=== PATIENT | female | born 1985 | race African-American/Black ===

== ENCOUNTER 2016-10-31 19:04 | Emergency (ER) | payer OTHER ==
--- NOTE | ~2016-10-31 | CR286 ---
[facility] A Service of [facility] RADIOLOGY TEXT RESULTS PATIENT: QUINTIN EMANUEL LOCATION: CFTX : 89 UNIT #: [id number] AGE: [address]: Nannette Carter APRN SEX: F ORDER DR: [id number] [facility] [address] [place], [place] [address] [id number] E MR#: [id number] Acc #: [id number] NAME: QUINTIN EMANUEL : 1985 SEX: F STUDY DATE/TIME: 10/31/2016 19:32 UNIT: [facility] ROOM: STUDY DESCRIPTION: CR Wrist W Navicular Min 3 Rt Attending Physician: Nannette Carter A.P.R.N. Ordering Physician: Nannette Carter A.P.R.N. Primary Care Physician: Larissa Reynoso M.D. MEDICAL IMAGING REPORT This report is preliminary unless electronic signature is present EXAM Right wrist four views HISTORY Fell today. Wrist pain. FINDINGS Three views of the right wrist demonstrates a subtle deformity over the dorsal aspect of the wrist could represent a small triquetral avulsion fracture. Correlate with target physical exam. The navicular appears intact. No other fractures or deformity seen. IMPRESSION Subtle irregularity over the dorsum of the wrist is seen only on the lateral view could represent a small triquetral avulsion injury. Correlate with targeted physical exam. Dictated by... Ish Hyatt M.D. THIS IS AN ELECTRONICALLY VERIFIED REPORT Ish Hyatt M.D. at 11/01/2016 2:48 PM RIAN/adriane TD: 11/01/2016 02:19 JOB #: [id number] MEDICAL IMAGING REPORT Page 1 of 1 COPY
--- NOTE | ~2016-10-31 | CR93 ---
[facility] A Service of [facility] RADIOLOGY TEXT RESULTS PATIENT: QUINTIN EMANUEL LOCATION: CFTX : 89 UNIT #: [id number] AGE: [address]: Nannette Carter APRN SEX: F ORDER DR: [id number] [facility] [address] [place], [place] [address] [id number] E MR#: [id number] Acc #: [id number] NAME: QUINTIN EMANUEL : 1985 SEX: F STUDY DATE/TIME: 10/31/2016 19:29 UNIT: [facility] ROOM: STUDY DESCRIPTION: CR Elbow Min 3 Views Lt Attending Physician: Nannette Carter A.P.R.N. Ordering Physician: Nannette Carter A.P.R.N. Primary Care Physician: Larissa Reynoso M.D. MEDICAL IMAGING REPORT This report is preliminary unless electronic signature is present EXAM Left elbow, 3 views HISTORY Fell today. Elbow pain. FINDINGS Three views of the left elbow demonstrates subtle displacement of the anterior fat pad could represent a small joint effusion. No discernible fracture. The radial head appears intact. Lucency seen across the coronoid process, but this does not have the typical appearance of a fracture. IMPRESSION Questionable small elbow effusion, but no discernible fracture. If clinical symptoms persist, follow-up imaging in 7-10 days may be of benefit. Dictated by... Ish Hyatt M.D. THIS IS AN ELECTRONICALLY VERIFIED REPORT Ish Hyatt M.D. at 11/01/2016 2:48 PM RIAN/jacob TD: 11/01/2016 02:18 JOB #: [id number] MEDICAL IMAGING REPORT Page 1 of 1 COPY
== END 2016-10-31 20:30 | disposition home or self-care (01) ==
LOC: CED 19:04 → CFTX 19:04
DX: S62.111A Displaced fracture of triquetrum [cuneiform] bone, right wrist, initial encounter for closed fracture (principal); S53.402A Unspecified sprain of left elbow, initial encounter; F41.9 Anxiety disorder, unspecified; W01.0XXA Fall on same level from slipping, tripping and stumbling without subsequent striking against object, initial encounter; Y92.009 Unspecified place in unspecified non-institutional (private) residence as the place of occurrence of the external cause
CPT/HCPCS: 29125; 73080; 73110; 99283